=== PATIENT | female | born 1990 | race Caucasian/White ===

== ENCOUNTER 2016-06-22 16:34 | Emergency (ER) | payer SELFPAY ==
[~2016-06-22] VITALS: Ht 147.3 cm; Wt 45.0 kg
--- NOTE | 2016-06-22 16:50 | NUR ---
PT SPEAKS NO GREEK AT ALL. CL
[2016-06-22] MEDS ORDERED: SODIUM CHLORIDE FLUSH 10 ML SYR IV PRN (17:10)
[2016-06-22] MEDS: SODIUM CHLORIDE FLUSH 3 ML SYR IV PRN (17:32)
[2016-06-22] MEDS: ONDANSETRON 2 MG/ML (Z0FRAN) 2 ML VIAL IV STA (17:33)
[2016-06-22 17:39] LABS: BASOPHILS % (AUTO) 0 % (0-2); EOSINOPHILS # (AUTO) 0.1 10^3uL; EOSINOPHILS % (AUTO) 1 % (0-4); LYMPHOCYTES # (AUTO) 1.5 X10^3; MEAN CORPUSCULAR HEMOGLOBIN 28.2 PG (26.0-34.0); MEAN CORPUSCULAR HGB CONC 34.7 g/dL (31.0-37.0); MEAN CORPUSCULAR VOLUME 81 FL (80-100); MEAN PLATELET VOLUME 11.1 FL (6.0-9.5); MONOCYTES # (AUTO) 0.4 X10^3; MONOCYTES % (AUTO) 6 % (3-11); NEUTROPHILS # (AUTO) 4.7 X10^3; NEUTROPHILS % (AUTO) 70 % (51-67); PLATELET COUNT 245 10^3uL (150-450); WHITE BLOOD COUNT 6.66 10^3uL (4.0-11.0)
[2016-06-22 17:47] LABS: ALBUMIN 4.6 g/dL (3.4-5.0); ANION GAP 15.3 MEQ/L (3-15); TOTAL PROTEIN 7.9 g/dL (6.4-8.5)
[2016-06-22 18:02] LABS: BILIRUBIN,URINE Negative (Negative); CLARITY,URINE Clear; COLOR,URINE Yellow; GLUCOSE, URINE (UA) Negative (Negative); LEUKOCYTE ESTERASE ,URINE 2+ (Negative)
[2016-06-22 18:03] LABS: URINE CENTRIFUGED VOLUME <10mL Unspun
[2016-06-22 18:10] LABS: RBC,URINE 0-2 /HPF
[2016-06-22] MEDS ORDERED: CEPH-507 PO (19:18)
[2016-06-22] MEDS ORDERED: ONDAN4ODT PO (19:18)
[2016-06-22 19:37] VITALS: BP 94/52
== END 2016-06-22 19:35 | disposition home or self-care (01) ==
LOC: ED 16:38
DX: O21.9 Vomiting of pregnancy, unspecified (principal); O09.30 Supervision of pregnancy with insufficient antenatal care, unspecified trimester
CPT/HCPCS: 36415; 80053; 81003; 81015; 84702; 85025; 87088; 96361; 96374; 99283; J2405; J7030